=== PATIENT | male | born 1990 | race Caucasian/White ===

== ENCOUNTER 2020-07-07 17:57 | Observation (INO) ==
[2020-07-07 18:22] VITALS: BMI 31.5
--- NOTE | 2020-07-07 18:25 | ED.PDOC ---
General ED Provider: Dr. MEDINA SANDERSON MD Chief Complaint: Shortness of Air Stated Complaint: awoke with sudden shortness of breath, chest tightness Time Seen by Physician: 18:12 Mode of Arrival: Walk-In Information Source: Patient Exam Limitations: No limitations Nursing and Triage Documentation Reviewed and Agree: Yes Does patient meet sepsis criteria?: No System Inflammatory Response Syndrome: Not Applicable Sepsis Protocol: For patient's 13 years and over: Temp is 96.8 and below OR 101 and greater Pulse >90 BPM Resp >20/minute Acutely Altered Mental Status Are patient's symptoms suggestive of a new infection, such as: -Pneumonia -Skin, Soft Tissue -Endocarditis -UTI -Bone, Joint Infection -Implantable Device -Acute Abdominal Infection -Wound Infection -Meningitis -Blood Stream Catheter Infection -Unknown Review of Systems Review Of Systems Constitutional: Denies Chills and Fever All Other Systems: Reviewed and Negative [facility] Social History Smoking and tobacco status: Former smoker How long ago did patient quit smokin years Alcohol intake: never Substance use type: does not use Physical Exam Physical Exam Appearance: Reports Well-appearing Ill-appearing: None Pain Distress: None Eyes: Reports UNIQUE and EOMI ENT: Reports Ears normal and Nose normal Neck: Supple Respiratory: Reports Breath sounds equal and Rhonchi (localized, right posterior mid lung) Cardiovascular: Reports RRR, Pulses normal and No murmur GI/: Reports Soft and Nontender Musculoskeletal: Reports Normal strength and No calf tenderness Skin: Reports Warm and Dry Neurological: Reports Sensation intact, Motor intact and Reflexes intact Psychiatric: Reports Affect appropriate Interpretation Radiology Interpretation Radiology Interpretation By: Radiologist Exam Interpreted: CXR Xray Comments: cardiomegaly Critical Care Note Critical Care Note Total Critical Care Time (mins): 0 Course Course Hematology/Chemistry: 07/07/20 18:30 07/07/20 18:30 Orders, Labs, Meds: Lab Review 07/07/20 07/07/20 07/07/20 18:30 18:30 18:30 WBC 8.11 RBC 5.36 Hgb 14.1 Hct 41.5 L MCV 77.4 L MCH 26.3 L MCHC 34.0 RDW Coeff of Cecil 13.9 Plt Count 333 Immature Gran % (Auto) 0.1 Neut % (Auto) 69.5 Lymph % (Auto) 19.6 Person % (Auto) 9.2 Eos % (Auto) 1.4 Baso % (Auto) 0.2 Neut # (Auto) 5.6 Lymph # (Auto) 1.6 Person # (Auto) 0.8 Eos # (Auto) 0.1 Baso # (Auto) 0.0 Immature Gran # (Auto) 0.0 Sodium 138.8 Potassium 3.94 Chloride 105.7 Carbon Dioxide 25.9 Anion Gap 11.14 BUN 20.7 H Creatinine 1.04 Estimated GFR (MDRD) 83.00 BUN/Creatinine Ratio 19.90 Glucose 107.1 H Calcium 9.68 Total Bilirubin 0.48 AST 30.5 ALT 27.3 Alkaline Phosphatase 97.7 Total Protein 7.75 Albumin 4.26 Globulin 3.49 Albumin/Globulin Ratio 1.22 D-Dimer 1018.94 H Orders Category Date Time Status PLACE PATIENT OBSERVATION .TO MEDSURG (MONITORED BED ADMISSION 07/07/20 19:51 Ordered ) EKG-(ED ONLY) Stat CARDIO 07/07/20 18:18 Completed NPO REMINDER: IMAGING ONCE CARE 07/07/20 19:16 Completed TELEMETRY MONITORING TELE CARE 07/07/20 19:52 Ordered ED IV/MEDIPORT/POWERPORT .ONCE EMERGENCY 07/07/20 19:18 Active ABG Stat LAB 07/07/20 18:21 Ordered CBC W/ AUTO DIFF Stat LAB 07/07/20 18:30 Completed COMPREHENSIVE METABOLIC PANEL Stat LAB 07/07/20 18:30 Completed D-DIMER Stat LAB 07/07/20 18:30 Completed RESPIRATORY PANEL 2.1 (PCR) Stat LAB 07/07/20 Ordered 0.9 % Sodium Chloride [Saline Flush] MEDS 07/07/20 19:18 Active 1 syr IVF PRN PRN Enoxaparin Sodium [Lovenox] MEDS 07/07/20 19:49 Stat 100 mg SUBCUT ONCE STA Omeprazole [Prilosec] MEDS 07/07/20 19:50 Stat 40 mg PO ONCE STA CHEST, 1V AP ONLY Stat RADS 07/07/20 18:[address] CHEST PE PROTOCOL Stat RADS 07/07/20 19:16 Ordered Medications Generic Name Dose Route Start Last Admin Trade Name Freq PRN Reason Stop Dose Admin Sodium Chloride 1 syr 07/07/20 19:18 0.9% Sodium Chloride 10 Ml Disp.Syrin IVF PRN PRN To flush IV Discontinued Medications Generic Name Dose Route Start Last Admin Trade Name Freq PRN Reason Stop Dose Admin Enoxaparin Sodium 100 mg 07/07/20 19:49 Enoxaparin Sodium 100 Mg/Ml Syr SUBCUT 07/07/20 19:50 ONCE STA Omeprazole 40 mg 07/07/20 19:50 Omeprazole 20 Mg Capsule.Dr PO 07/07/20 19:51 ONCE STA D-Dimer elevated at 1018, will obtain CT chest, PE protocol Vital Signs: Temp Pulse Resp BP Pulse Ox 07/07/20 18:17 97.1 F L 68 18 140/87 98 Discharge Plan Discharge Patient Disposition: PLACED OBSERVATION Discharge Problem: Elevated d-dimer, Shortness of breath ED Provider: MEDINA SANDERSON Condition: Stable Physician Progress Note: patient has elevated D-Dimer, now states he has severe urticaria from IV contrast; have discussed with patient option for V/Q scan and venous doppler lower extremities, empiric Lovenox, and he agrees. As the patient has a positive Covid 19 family member from 2-3 weeks ago, he seems low risk; however, a rapid swab will be obtained to better assist with proper bed placement.
[2020-07-07 18:43] LABS: BASOPHILS % (AUTO) 0.2 % (0.0-3.0); EOSINOPHILS # (AUTO) 0.1 K/ul (0.0-0.7); EOSINOPHILS % (AUTO) 1.4 % (0.0-7.0); HEMATOCRIT 41.5 % (42.0-52.0); HEMOGLOBIN 14.1 g/dl (14.0-18.0); IMMATURE GRANULOCYTE % (AUTO) 0.1 % (0.0-5.0); LYMPHOCYTES # (AUTO) 1.6 K/uL (0.60-3.4); LYMPHOCYTES % (AUTO) 19.6 (10.0-50.0); MEAN CORPUSCULAR HEMOGLOBIN 26.3 pg (27.0-31.0); MEAN CORPUSCULAR VOLUME 77.4 fl (80.0-94.0); MONOCYTES # (AUTO) 0.8 K/uL (0.4-2.0); MONOCYTES % (AUTO) 9.2 (0-10); NEUTROPHILS # (AUTO) 5.6 K/ul (2.0-6.9); NEUTROPHILS % (AUTO) 69.5 % (42.2-75.2); PLATELET COUNT 333 10^3/uL (140-440); RDW COEFFICIENT OF VARIATION 13.9 % (11.6-14.8); RED BLOOD COUNT 5.36 10^6/ul (4.70-6.10); WHITE BLOOD COUNT 8.11 K/ul (4.2-10.2)
--- NOTE | 2020-07-07 18:47 | DI ---
EXAM: AP single view of the chest. HISTORY: Shortness of breath. FINDINGS: The bones are unremarkable. The cardiac silhouette is enlarged. The pulmonary vasculature is within normal limits. The costophrenic angles are clear. No infiltrate or consolidation. Impression: Cardiomegaly.
[2020-07-07 18:50] LABS: ALANINE AMINOTRANSFERASE 27.3 U/L (0-50); ALBUMIN 4.26 g/dL (3.5-5.0); ALKALINE PHOSPHATASE 97.7 U/L (38-126); ASPARTATE AMINO TRANSFERASE 30.5 U/L (17-59); BILIRUBIN,TOTAL 0.48 mg/dL (0.2-1.3); BLOOD UREA NITROGEN 20.7 mg/dL (9-20); CALCIUM 9.68 mg/dL (8.4-10.2); CARBON DIOXIDE 25.9 mmol/L (22-30.0); CHLORIDE 105.7 mmol/L (98-107); CREATININE 1.04 mg/dL (0.60-1.10); GLUCOSE 107.1 mg/dL (74-106); POTASSIUM 3.94 mmol/L (3.5-5.1); SODIUM 138.8 mmol/L (134.5-145); TOTAL PROTEIN 7.75 g/dL (6.3-8.2)
[2020-07-07] MEDS ORDERED: LOVENOX SUBCUT STA (19:49)
[2020-07-07] MEDS ORDERED: PRILOSEC PO STA (19:50)
--- NOTE | 2020-07-07 20:04 | PCM ---
Chief Complaint Chief Complaint: acute shortness of breath, elevated D-Dimer History of Present Illness History of Present Illness: 29 year old male, non smoker, daughter recently Covid positive, had negative Covid swab yesterday, today awoke with acute shortness of breath 1 hour [employer]; patient complains of pleuritic chest discomfort anteriorly; denies fever or chills. Review of Systems Constitutional: Reports No symptoms Eyes: Reports No symptoms Ears: Reports No symptoms Nose: Reports No symptoms Throat: Reports No symptoms Mouth: Reports No symptoms Respiratory: Reports Shortness of air and Pain with breathing Cardiovascular: Reports Palpitations Gastrointestinal: Reports Diarrhea and Other (cramps) Genitourinary: Reports No symptoms Neurological: Reports No symptoms Musculoskeletal: Reports No symptoms Skin: Reports No symptoms Immunology: Reports No symptoms Hematology: Reports No symptoms Allergies Allergies Allergy/AdvReac Type Severity Reaction Status Date / Time acetaminophen [From Tylenol] Allergy Hives Verified 07/07/20 18:23 Iodinated Contrast Media AdvReac Verified 07/07/20 19:53 [facility] Social History Smoking and tobacco status: Former smoker How long ago did patient quit smokin years Alcohol intake: never Substance use type: does not use Medications Medications: Medications Generic Name Dose Route Start Last Admin Trade Name Freq PRN Reason Stop Dose Admin Sodium Chloride 1 syr 07/07/20 19:18 0.9% Sodium Chloride 10 Ml Disp.Syrin IVF PRN PRN To flush IV Body Composition Height: 6 ft 1 in Weight: 108.4 kg Body Mass Index (BMI): 31.5 Vital Signs Temperature: 97.1 F Pulse Rate: 68 Respiratory Rate: 18 Blood Pressure: 140/87 O2 Sat by Pulse Oximetry: 98 Physical Examination Appearance: Reports No pain distress and Well-nourished Ill-appearing: Mild Eyes: Reports EOMI ENT: Reports Ears normal, Nose normal and Oropharynx normal Neck: Supple Respiratory: Reports Airway patent and Rhonchi (posterior, right, mid lung patel) Cardiovascular: Reports RRR and No rub GI/: Reports Soft and Nontender Musculoskeletal: Reports Normal strength and ROM intact Skin: Reports Warm and Dry Neurological: Reports Sensation intact, Motor intact, Reflexes intact, Cranial nerves intact and Alert Psychiatric: Reports Affect appropriate Lab/Tests/Diagnostic Imaging Lab/Tests/Diagnostic Imaging: Lab Review 07/07/20 07/07/20 07/07/20 18:30 18:30 18:30 WBC 8.11 RBC 5.36 Hgb 14.1 Hct 41.5 L MCV 77.4 L MCH 26.3 L MCHC 34.0 RDW Coeff of Cecil 13.9 Plt Count 333 Immature Gran % (Auto) 0.1 Neut % (Auto) 69.5 Lymph % (Auto) 19.6 [place] % (Auto) 9.2 Eos % (Auto) 1.4 Baso % (Auto) 0.2 Neut # (Auto) 5.6 Lymph # (Auto) 1.6 [place] # (Auto) 0.8 Eos # (Auto) 0.1 Baso # (Auto) 0.0 Immature Gran # (Auto) 0.0 Sodium 138.8 Potassium 3.94 Chloride 105.7 Carbon Dioxide 25.9 Anion Gap 11.14 BUN 20.7 H Creatinine 1.04 Estimated GFR (MDRD) 83.00 BUN/Creatinine Ratio 19.90 Glucose 107.1 H Calcium 9.68 Total Bilirubin 0.48 AST 30.5 ALT 27.3 Alkaline Phosphatase 97.7 Total Protein 7.75 Albumin 4.26 Globulin 3.49 Albumin/Globulin Ratio 1.22 D-Dimer 1018.94 H Orders Category Date Time Status PLACE PATIENT OBSERVATION .TO MEDSURG (MONITORED BED ADMISSION 07/07/20 19:51 Active ) EKG-(ED ONLY) Stat CARDIO 07/07/20 18:18 Completed NPO REMINDER: IMAGING ONCE CARE 07/07/20 19:16 Completed TELEMETRY MONITORING TELE CARE 07/07/20 19:52 Active ED IV/MEDIPORT/POWERPORT .ONCE EMERGENCY 07/07/20 19:18 Active ABG Stat LAB 07/07/20 18:21 Ordered CBC W/ AUTO DIFF Stat LAB 07/07/20 18:30 Completed COMPREHENSIVE METABOLIC PANEL Stat LAB 07/07/20 18:30 Completed D-DIMER Stat LAB 07/07/20 18:30 Completed RESPIRATORY PANEL 2.1 (PCR) Stat LAB 07/07/20 Ordered 0.9 % Sodium Chloride [Saline Flush] MEDS 07/07/20 19:18 Active 1 syr IVF PRN PRN Enoxaparin Sodium [Lovenox] MEDS 07/07/20 19:49 Discontinued 100 mg SUBCUT ONCE STA Omeprazole [Prilosec] MEDS 07/07/20 19:50 Discontinued 40 mg PO ONCE STA CHEST, 1V AP ONLY Stat RADS 07/07/20 18:[address] CHEST PE PROTOCOL Stat RADS 07/07/20 19:16 Ordered Medications Generic Name Dose Route Start Last Admin Trade Name Freq PRN Reason Stop Dose Admin Sodium Chloride 1 syr 07/07/20 19:18 0.9% Sodium Chloride 10 Ml Disp.Syrin IVF PRN PRN To flush IV Discontinued Medications Generic Name Dose Route Start Last Admin Trade Name Freq PRN Reason Stop Dose Admin Enoxaparin Sodium 100 mg 07/07/20 19:49 Enoxaparin Sodium 100 Mg/Ml Syr SUBCUT 07/07/20 19:50 ONCE STA Omeprazole 40 mg 07/07/20 19:50 Omeprazole 20 Mg Capsule.Dr PO 07/07/20 19:51 ONCE STA Assessment (1) Elevated d-dimer: Status: Acute Code(s): R79.89 - Other specified abnormal findings of blood chemistry SNOMED Code(s): 905357704 (2) Shortness of breath: Status: Acute Code(s): R06.02 - Shortness of breath SNOMED Code(s): 375844570 Plan Plan: will place patient in observation, order nuclear lung ventilation/perfusion scan for am, venous doppler lower extremities, and empirically administer Lovenox tonight.
--- NOTE | 2020-07-08 09:40 | US ---
EXAM: ULTRASOUND LOWER EXTREMITY VENOUS DOPPLER EXAM HISTORY: Elevated D-dimer. FINDINGS: Bilateral lower extremity venous Doppler exam. Real time hernandez-scale, Doppler spectral yisel lysis and color-flow Doppler imaging performed. The veins targeted for evaluation include the common femoral, greater saphenous, profundus, femoral, popliteal, peroneal, anterior tibial and posterior t ibial. The evaluated veins demonstrated normal spontaneous flow and compression without evidence o f thrombosis. IMPRESSION: No venous thrombosis identified within the areas evaluated.
[2020-07-08] MEDS ORDERED: TYLENOL PO PRN ×2 (10:56→10:57)
--- NOTE | 2020-07-08 11:08 | PCM ---
Chief Complaint Chief Complaint: Chest tightness and Shortness of breath History of Present Illness History of Present Illness: 29 y/o white male presented to ER yesterday evening around 1800 hrs stating he had awakened from sleep-a nap yesterday at 1700 hrs with sudden onset of dysp.kelly and lt sided chest tightness. [place]hey slightly nauseated, denied diaphoresis or vomiting. Pt evaluated in ER and d Dimer elevated. Allergic to contrast dye so it was necessary to admit, initiate therapy and schedule VQ Nuclear scan and Doppler Venous Scan this AM Review of Systems Constitutional: Denies No symptoms, Fever, Chills, Weakness, Sweats, Fatigue, Loss of appetite and Other Eyes: Denies No symptoms, Blurred vision, Double-vision, Discharge, Itching, Pain, Redness, Photophobia and Other Ears: Denies No symptoms, Pain, Bleeding, Drainage, Ringing, Hearing loss and Other Nose: Denies No symptoms, Bleeding, Congestion, Discharge and Other Throat: Denies No symptoms, Pain, Swelling, Voice change and Other Mouth: Denies No symptoms, Bleeding, Pain, Swelling and Other Respiratory: Reports Shortness of air; Denies No symptoms, Cough, Wheeze, Hemoptysis, Pain with breathing and Other Cardiovascular: Reports Left arm pain; Denies No symptoms, Diaphoresis, PND, Orthopnea, Edema, Palpitations, Syncope and Other Gastrointestinal: Denies No symptoms, Abdominal pain, Nausea, Vomiting, Diarrhea, Melena, Hematemesis, Hematochezia, Dysphagia, Constipation and Other Genitourinary: Denies No symptoms, dysuria, hematuria, frequency, incontinence, flank pain, penile discharge, testicular pain, testicular swelling and other Neurological: Denies No symptoms, Headache, Dizziness, Seizure, Numbness, Weakness, Speech difficulty, Problems with walking, Tremor, Fainting and Other Musculoskeletal: Denies No symptoms, Pain, Swelling in joints and Other Skin: Denies No symptoms, Rash, Pruritus, Lacerations, Wounds, Bruising and Other Immunology: Denies No symptoms, Hives, Itching, Frequent infections, Difficulty healing and Other Hematology: Denies No symptoms, Easy bruising, Easy bleeding, Swollen glands and Other Endocrine: Denies No symptoms, Weight changes, Cold intolerance, Heat intolerance, Excessive thirst, Excessive hunger, Polyuria and Other Psychiatric: Denies No symptoms, Depression, Anxiety, Sleeplessness, Hopelessness, Suicidal, Hallucinations and Other Habits: Denies Tobacco use, Substance use, Alcohol use and Other Allergies Allergies Allergy/AdvReac Type Severity Reaction Status Date / Time acetaminophen [From Tylenol] Allergy Hives Verified 07/07/20 18:23 Iodinated Contrast Media AdvReac Verified 07/07/20 19:53 PFSH Medical History (Updated 07/08/20 @ 11:07 by SUSAN BAUTISTA DO) Elevated d-dimer GERD (gastroesophageal reflux disease) Hypertension SVT (supraventricular tachycardia) Family History (Updated 07/08/20 @ 11:22 by SUSAN BAUTISTA DO) UNCLE Hypertension Other No known health problems Social History Smoking and tobacco status: Former smoker How long ago did patient quit smokin years Alcohol intake: never Substance use type: does not use Medications Medications: Medications Generic Name Dose Route Start Last Admin Trade Name Freq PRN Reason Stop Dose Admin Acetaminophen 650 mg 07/08/20 10:56 Acetaminophen 325 Mg Tablet PO Q4H PRN headache Sodium Chloride 1 syr 07/07/20 19:18 0.9% Sodium Chloride 10 Ml Disp.Syrin IVF PRN PRN To flush IV Sodium Chloride 1 syr 07/07/20 20:16 0.9% Sodium Chloride 10 Ml Disp.Syrin IVF PRN PRN To flush IV Body Composition Height: 6 ft 1 in Weight: 238 lb 15.697 oz Body Mass Index (BMI): 31.5 Vital Signs Temperature: 97.5 F Pulse Rate: 69 Respiratory Rate: 16 Blood Pressure: 113/72 O2 Sat by Pulse Oximetry: 97 Physical Examination Appearance: Reports Well-appearing, No pain distress and Well-nourished Ill-appearing: None Pain Distress: None Eyes: Reports UNIQUE, EOMI and Conjunctiva clear ENT: Reports Ears normal, Nose normal and Oropharynx normal Neck: Supple Respiratory: Reports Airway patent, Breath sounds clear and Breath sounds equal Cardiovascular: Reports RRR, Pulses normal, No rub and No murmur GI/: Reports Soft, Nontender, No masses, Bowel sounds normal and No Organomegaly Musculoskeletal: Reports Normal strength, ROM intact, No edema and No calf tenderness Skin: Reports Warm, Dry and Normal color Neurological: Reports Sensation intact, Motor intact, Reflexes intact, Cranial nerves intact, Alert and Oriented Psychiatric: Reports Affect appropriate and Mood appropriate Lab/Tests/Diagnostic Imaging Lab/Tests/Diagnostic Imaging: Lab Review 07/07/20 07/07/20 07/07/20 18:30 18:30 18:30 WBC 8.11 RBC 5.36 Hgb 14.1 Hct 41.5 L MCV 77.4 L MCH 26.3 L MCHC 34.0 RDW Coeff of Cecil 13.9 Plt Count 333 Immature Gran % (Auto) 0.1 Neut % (Auto) 69.5 Lymph % (Auto) 19.6 [place] % (Auto) 9.2 Eos % (Auto) 1.4 Baso % (Auto) 0.2 Neut # (Auto) 5.6 Lymph # (Auto) 1.6 [place] # (Auto) 0.8 Eos # (Auto) 0.1 Baso # (Auto) 0.0 Immature Gran # (Auto) 0.0 Sodium 138.8 Potassium 3.94 Chloride 105.7 Carbon Dioxide 25.9 Anion Gap 11.14 BUN 20.7 H Creatinine 1.04 Estimated GFR (MDRD) 83.00 BUN/Creatinine Ratio 19.90 Glucose 107.1 H Calcium 9.68 Total Bilirubin 0.48 AST 30.5 ALT 27.3 Alkaline Phosphatase 97.7 Total Protein 7.75 Albumin 4.26 Globulin 3.49 Albumin/Globulin Ratio 1.22 D-Dimer 1018.94 H Adenovirus (PCR) B. pertussis DNA (PCR) B.parapertussis DNA PCR C. pneumoniae DNA (PCR) Coronavirus OC43 (PCR) Coronavirus HKU1 (PCR) Coronavirus 229E (PCR) Coronavirus NL63 (PCR) Human Metapneumovir PCR Influenza Type A (PCR) Influenza B (RT-PCR) M. pneumoniae (PCR) Parainfluenza 1 (PCR) Parainfluenza 2 (PCR) Parainfluenza 3 (PCR) Parainfluenza 4 (PCR) RSV (PCR) Entero/Rhino (PCR) SARS-CoV-2 (PCR) 07/07/20 20:05 WBC RBC Hgb Hct MCV MCH MCHC RDW Coeff of Cecil Plt Count Immature Gran % (Auto) Neut % (Auto) Lymph % (Auto) [place] % (Auto) Eos % (Auto) Baso % (Auto) Neut # (Auto) Lymph # (Auto) [place] # (Auto) Eos # (Auto) Baso # (Auto) Immature Gran # (Auto) Sodium Potassium Chloride Carbon Dioxide Anion Gap BUN Creatinine Estimated GFR (MDRD) BUN/Creatinine Ratio Glucose Calcium Total Bilirubin AST ALT Alkaline Phosphatase Total Protein Albumin Globulin Albumin/Globulin Ratio D-Dimer Adenovirus (PCR) Not detected B. pertussis DNA (PCR) Not detected B.parapertussis DNA PCR Not detected C. pneumoniae DNA (PCR) Not detected Coronavirus OC43 (PCR) Not detected Coronavirus HKU1 (PCR) Not detected Coronavirus 229E (PCR) Not detected Coronavirus NL63 (PCR) Not detected Human Metapneumovir PCR Not detected Influenza Type A (PCR) Not detected Influenza B (RT-PCR) Not detected M. pneumoniae (PCR) Not detected Parainfluenza 1 (PCR) Not detected Parainfluenza 2 (PCR) Not detected Parainfluenza 3 (PCR) Not detected Parainfluenza 4 (PCR) Not detected RSV (PCR) Not detected Entero/Rhino (PCR) Not detected SARS-CoV-2 (PCR) Not detected Orders Category Date Time Status PLACE PATIENT OBSERVATION .TO MEDSURG (MONITORED BED ADMISSION 07/07/20 19:51 Active ) EKG-(ED ONLY) Stat CARDIO 07/07/20 18:18 Completed EKG-(IP & OP ONLY) Stat CARDIO 07/08/20 10:51 Ordered ACTIVITY .Up ad Karol CARE 07/07/20 20:12 Active INTAKE & OUTPUT Q8HR CARE 07/07/20 20:12 Active NOTIFY PHYSICIAN OF CONSULT ONCE CARE 07/08/20 10:53 Active NPO REMINDER: IMAGING ONCE CARE 07/07/20 19:16 Completed NPO REMINDER: LAB TEST ONCE CARE 07/08/20 10:55 Active TELEMETRY MONITORING TELE CARE 07/07/20 19:52 Active VITAL SIGNS Q4HR CARE 07/07/20 20:12 Active CONSULT PHYSICIAN [PHYSICIAN CONSULTATION] [CONS] Stat CONSULTS 07/08/20 10:53 Ordered REGULAR DIET DIETARY 07/07/20 Breakfast Ordered ED IV/MEDIPORT/POWERPORT .ONCE EMERGENCY 07/07/20 19:18 Active CBC W/ AUTO DIFF Stat LAB 07/07/20 18:30 Completed COMPREHENSIVE METABOLIC PANEL Stat LAB 07/07/20 18:30 Completed D-DIMER Stat LAB 07/07/20 18:30 Completed ESR Stat LAB 07/08/20 10:52 Ordered LIPID PANEL Stat LAB 07/08/20 10:54 Ordered RESPIRATORY PANEL 2.1 (PCR) Stat LAB 07/07/20 20:05 Completed TROPONIN I Stat LAB 07/08/20 10:52 Ordered 0.9 % Sodium Chloride [Saline Flush] MEDS 07/07/20 19:18 Active 1 syr IVF PRN PRN 0.9 % Sodium Chloride [Saline Flush] MEDS 07/07/20 20:16 Active 1 syr IVF PRN PRN Acetaminophen [Tylenol] MEDS 07/08/20 10:56 Ordered 650 mg PO Q4H PRN Enoxaparin Sodium [Lovenox] MEDS 07/07/20 19:49 Discontinued 100 mg SUBCUT ONCE STA Omeprazole [Prilosec] MEDS 07/07/20 19:50 Discontinued 40 mg PO ONCE STA RESUSCITATION STATUS Routine OTHERS 07/07/20 20:12 Ordered CHEST, 1V AP ONLY Stat RADS 07/07/20 18:[address] CHEST W/O CONTRAST Stat RADS 07/08/20 10:51 Ordered PULMONARY PERFUSION/ NUC MED Routine RADS 07/08/20 06:00 Taken U/S VENOUS SCAN KEVIN LEGS Routine RADS 07/08/20 06:00 Completed Medications Generic Name Dose Route Start Last Admin Trade Name Freq PRN Reason Stop Dose Admin Acetaminophen 650 mg 07/08/20 10:56 Acetaminophen 325 Mg Tablet PO Q4H PRN headache Sodium Chloride 1 syr 07/07/20 19:18 0.9% Sodium Chloride 10 Ml Disp.Syrin IVF PRN PRN To flush IV Sodium Chloride 1 syr 07/07/20 20:16 0.9% Sodium Chloride 10 Ml Disp.Syrin IVF PRN PRN To flush IV Discontinued Medications Generic Name Dose Route Start Last Admin Trade Name Freq PRN Reason Stop Dose Admin Enoxaparin Sodium 100 mg 07/07/20 19:49 07/07/20 20:08 Enoxaparin Sodium 100 Mg/Ml Syr SUBCUT 07/07/20 19:50 100 mg ONCE STA Administration Omeprazole 40 mg 07/07/20 19:50 07/07/20 20:09 Omeprazole 20 Mg Capsule.Dr BLAS 07/07/20 19:51 40 mg ONCE STA Administration Assessment (1) Elevated d-dimer: Status: Acute Code(s): R79.89 - Other specified abnormal findings of blood chemistry SNOMED Code(s): 406442917 (2) Shortness of breath: Status: Acute Code(s): R06.02 - Shortness of breath SNOMED Code(s): 306857723 (3) Chest tightness: Status: Acute Code(s): R07.89 - Other chest pain SNOMED Code(s): 23791923 (4) Dyspnea on exertion: Status: Acute Code(s): R06.00 - Dyspnea, unspecified SNOMED Code(s): 98810251 Plan Plan: Reveiewd testing with patient recommend additonal evaluation including Cardiology condult, Echo and stress test Patient agrees Previously seen small bilateral pulmonary nodules, largest in the left upper lobe measuring 5.6 mm are stable. There are three nodules on the right and the single nodule on the left. Lopez image(s) provided. Lungs are otherwise clear. Normal vascularity. No pleural fluid. The bones are within normal limits.
--- NOTE | 2020-07-08 11:20 | NM ---
EXAM: Perfusion lung scan HISTORY: Shortness of breath. Elevated D-dimer. COMPARISON: None of this type. Chest x-ray 07/07/2020. CTA 07/12/2019. PROCEDURE: Ventilation: This portion of the standard examination was not performed. Perfusion: The patient was injected with 5.3 mCi of 99 technetium MAA intravenously after which ante rior, posterior , lateral and anterior and posterior oblique images were obtained. FINDINGS: The examination demonstrates a generally uniform distribution of activity within the lung f ields. No specific segmental or subsegmental perfusion defects suggestive of pulmonary embolus are i dentified. IMPRESSION: No evidence of pulmonary embolus.
[2020-07-08] MEDS ORDERED: MOTRIN PO PRN (11:28)
--- NOTE | 2020-07-08 11:50 | CT ---
EXAM: CT THORAX HISTORY: Pulmonary nodules and lymph nodes, follow-up. TECHNIQUE: CT thorax without intravenous contrast. Multiplanar images presented. COMPARISON: 07/12/2019 FINDINGS: Normal heart size. No pericardial effusion. Thoracic aorta is within normal limits. Limited evalua tion of the mediastinum and hilar structures without the administration of intravenous contrast agent . Previously seen lymph node to the left of the pulmonary trunk is again noted and appears smaller i n size currently measuring 14 mm short axis. Previously seen small bilateral pulmonary nodules, largest in the left upper lobe measuring 5.6 mm ar e stable. There are three nodules on the right and the single nodule on the left. Lopez image(s) prov ided. Lungs are otherwise clear. Normal vascularity. No pleural fluid. The bones are within normal limits. IMPRESSION: 1. Stable small pulmonary nodules. 2. Prominent mediastinal lymph node is decreased in size since prior study.
[2020-07-08] MEDS ORDERED: PROTONIX PO STA (11:53)
[2020-07-08 12:10] LABS: CHOLESTEROL 145.7 mg/dL (0-200); HDL CHOLESTEROL 33.4 mg/dL (35-60); LDL CHOLESTEROL,CALCULATED 78 mmol/L; TRIGLYCERIDES 173.9 mg/dL (0-150); VLDL CHOLESTEROL 35 mg/dL (2-30)
[2020-07-08 12:46] LABS: TROPONIN I < 0.012 ng/ml (0.0000-0.120)
[2020-07-08 12:47] LABS: ERYTHROCYTE SEDIMENTATION RATE 7 mm/hr (0-15)
--- NOTE | 2020-07-08 14:39 | CONS ---
DATE OF CONSULTATION: 07/08/20 HISTORY OF PRESENT ILLNESS: 29-year-old white male hospitalized through the emergency room yesterday with chest pain. The patient was hospitalized under hospitalist services. Today Dr. Espitia called me and asked me for consultation for evaluation of chest pain. The patient is undergoing workup for elevated D. dimer. The patient is waiting for VQ scan to be done. The doppler for both lower extremities negative for DVT. Chest pain is localized to apical area going to the neck and to the left arm, duration two days. It started when he awoke from sleep, mainly nonexertional, comes and goes with steady tightness. He has never had this type of problems before. REVIEW OF SYSTEMS: CONSTITUTIONAL: No night sweats. No fatigue, malaise, lethargy. No fever or chills. HEENT: Eyes: No visual changes. No eye pain. No eye discharge. ENT: No sinus drainage. No epistaxis. No sinus pain. No sore throat. No odynophagia. No ear pain. No congestion. RESPIRATORY: No cough, no congestion. No hemoptysis. No shortness of breath. CARDIOVASCULAR: Chest pain, precordial of two days duration, steady and feeling to the jaw at times and on the left shoulder, no change with deep inspiration. GASTROINTESTINAL: Reflux disease, has to take medication all the time. No abdominal pain. No nausea or vomiting. No diarrhea or constipation. No hematemesis. No hematochezia. GENITOURINARY: No urgency. No frequency. No dysuria. No hematuria. No obstructive symptoms. No discharge. No pain. No significant abnormal bleeding. MUSCULOSKELETAL: No musculoskeletal pain. No joint swelling. NEUROLOGICAL: No headache. No neck pain. No syncope. No seizures. No dizziness. PSYCHIATRIC: Not anxious. No depression. No suicidal thoughts. No homicidal thoughts. SKIN: No rash. No lesions. No wounds. ENDOCRINE: No unexplained weight loss. No weight gain. HEMATOLOGIC/LYMPHATIC: No anemia. No purpura. No petechiae. No prolonged or excessive bleeding. No palpable lymph nodes. ALLERGIES: ACETAMINOPHEN AND IODINATED CONTRAST. PAST MEDICAL HISTORY: 1. History of hypertension for which he is on Metoprolol for the last several months, Dr. Raines in [place] started it. 2. The patient is on Omeprazole for reflux disease for a long time. SOCIAL/PERSONAL/FAMILY HISTORY: The patient lives with amauri who has three kids, is employed. Nonsmoker. No alcohol use. No drug abuse. The patient's uncles had coronary artery disease. PHYSICAL EXAMINATION: (Entire physical exam negative) GENERAL: The patient is oriented to time, place and person. VITAL SIGNS: Temperature 97.5, pulse 70, respiratory rate 16, BP 130/72, pulse ox 97% on room air. HEENT: Head normocephalic, atraumatic. Eyes: Extraocular muscles are intact. Pupils are equal, round and reactive to light and accommodation. Ears: No lesions. Nose appeared normal. Throat: No exudate or erythema. NECK: Supple. No JVD, no carotid bruit. No lymphadenopathy or thyromegaly. LUNGS: Clear to auscultation. Percussion note normal. Chest symmetrical. HEART: S1, S2, no S3. No murmurs. No cyanosis or clubbing. No ascites. Pulses: Dorsalis pedis and posterior tibial pulses +1 to +2 bilaterally. ABDOMEN: Soft. Nontender. Bowel sounds active. No CVA tenderness. No mass felt. EXTREMITIES: No edema. Full range of motion of all extremities, equal. NEUROLOGIC: No focal deficit. Cranial nerves II through XII are grossly intact. No headache, no double vision or headache. SKIN: Not dry. Intact. Turgor - normal. LYMPHATIC: No palpable lymph nodes/no lymphedema. MUSCULOSKELETAL: Normal joints with no swelling. Muscle tone is normal. LABS: Hemoglobin 14.1, WBC 8,000, normal differential. Creatinine 1, BUN 20, potassium 3.9. GFR 83 cc/min. Cardiac markers negative. EKG sinus rhythm. No changes times two. Telemetry sinus rhythm. No ST wave change. Echocardiogram was done this morning showing normal LV contractility, no wall motion abnormality noted. ASSESSMENT: 1. Chest pain with a history equivocal for coronary insufficiency. The patient has chest pain which is nonexertional with practically negative cardiac markers, EKGs and echocardiographic finding. 2. Hypertension. 3. Lipid profile pending. 4. BMI 31. 5. Family history of heart disease. RECOMMENDATIONS: 1. Echo was already done. 2. Will do stress echo in the morning. 3. Coronary artery disease and risk factors discussed with the patient. 4. Add Protonix 40 mg twice a day. 5. D/C Ibuprofen. 6. Continue telemetry. Thanks for referral, will follow. HIEU
[2020-07-08] MEDS: PROTONIX PO SCH (17:22)
[2020-07-09] MEDS ORDERED: ULTRAM PO PRN (00:55)
[2020-07-09] MEDS: PROTONIX PO SCH (05:59)
--- NOTE | 2020-07-09 08:11 | PCM.PROG ---
Objective: Vitals: T=97.8 F, P=74, R=18, FB=166/74, SPO2=98 HEENT: no scalp tenderness, swelling, or apparent injury Neck: normal ROM, non tender Lungs: clear CVS: 74, regular, without murmur or rub Abdomen: soft, non tender Extremities: non tender Neurological: up and about, without difficulty; Cranial nerves/M/S/DTR/Gait normal; negative Romberg (1) Elevated d-dimer: Status: Acute Code(s): R79.89 - Other specified abnormal findings of blood chemistry SNOMED Code(s): 184558687 (2) Shortness of breath: Status: Acute Code(s): R06.02 - Shortness of breath SNOMED Code(s): 168435261 (3) Chest tightness: Status: Acute Code(s): R07.89 - Other chest pain SNOMED Code(s): 28748885 (4) Dyspnea on exertion: Status: Acute Code(s): R06.00 - Dyspnea, unspecified SNOMED Code(s): 16776386 (5) Headache: Status: Acute Code(s): R51.9 - Headache, unspecified SNOMED Code(s): 73815373 (6) Minor traumatic injury of head with normal mental status: Status: Acute Code(s): S09.90XA - Unspecified injury of head, initial encounter SNOMED Code(s): 260194522
--- NOTE | 2020-07-09 08:16 | PCM.PROG ---
S: Patient states he has been up and about, that a few hours ago he felt woozy when walking, and bumped his right parietal area on the corner closet wall, described his pain as 10/10, unrelieved with tramadol. O: see previous note for vitals, physical assessments. Reviewed with nursing, no witness of the patient's stated injury to his head. A: Headache, minor head trauma without objective evidence of injury or neurological abnormality. P: Patient is awaiting stress echo today; will obtain CT scan head to exclude any serious injury, monitor neuro signs; anticipate release from observation today if OK with Dr. Cardoso after today's studies complete. Will consult case management.
--- NOTE | 2020-07-09 09:14 | CT ---
EXAM: CT Head HISTORY: Head injury, headache COMPARISON: 07/12/2019 TECHNIQUE: CT head performed without contrast FINDINGS: There is no mass effect, midline shift, or intracranial hemmorhage. Schmitz white differenti ation is preserved. There is no extra-axial collection. The ventricles and sulci are unremarkable. The basal cisterns are patent. There is no depressed calvarial fracture. The mastoid air cells are clear. The visualized paranasal sinuses are clear. IMPRESSION: No acute intracranial abnormality.
[2020-07-09 10:21] VITALS: BP 123/72; TEMP 98
[2020-07-09 12:25] LABS: AMPHETAMINE SCREEN,URINE NEGATIVE (NEGATIVE); BARBITURATE SCREEN,URINE NEGATIVE (NEGATIVE); BENZODIAZEPINES SCREEN,URINE NEGATIVE (NEGATIVE); CANNABINOID SCREEN,URINE NEGATIVE (NEGATIVE); COCAIN SCREEN,URINE NEGATIVE (NEGATIVE); METHADONE URINE SCREEN NEGATIVE (NEGATIVE); METHAMPHETAMINES SCREEN,URINE NEGATIVE (NEGATIVE); OPIATE SCREEN,URINE NEGATIVE (NEGATIVE); OXYCODONE URINE SCREEN NEGATIVE (NEGATIVE); PHENCYCLIDINE SCREEN,URINE NEGATIVE (NEGATIVE); PROPOXYPHENE URINE SCREEN NEGATIVE (NEGATIVE); TRICYCLIC ANTIDEPRESSANTS URIN NEGATIVE (NEGATIVE)
--- NOTE | 2020-07-09 13:59 | PCM.PROG ---
History of Present Illness: Admitted 07/07/20 21:49, this 29 year old /WHITE/M [] Physical Examination: Vitals: Temperature 98 F, Pulse 65, Respirations 16, Blood Pressure 123/72, SPO2 97 Body Measurements: Height 6 ft 1 in, Weight 108.4 kg, BMI 31.5-Obese HEENT NEGATIVE RESP CLEAR CV-NORMAL MS-NORMAL NEURO-M/S/DTR/CrN/GAIT NORMAL Allergies Allergy/AdvReac Type Severity Reaction Status Date / Time acetaminophen [From Tylenol] Allergy Hives Verified 07/07/20 18:23 Iodinated Contrast Media AdvReac Verified 07/07/20 19:53 Medications: Medications Generic Name Dose Route Start Last Admin Trade Name Freq PRN Reason Stop Dose Admin Pantoprazole Sodium 40 mg 07/08/20 17:00 07/09/20 05:59 Pantoprazole Sodium 40 Mg Tablet.Dr PO 40 mg BIDAC SORAIDA Administration Sodium Chloride 1 syr 07/07/20 20:16 0.9% Sodium Chloride 10 Ml Disp.Syrin IVF PRN PRN To flush IV Sodium Chloride 1 syr 07/08/20 21:00 07/09/20 05:59 0.9% Sodium Chloride 10 Ml Disp.Syrin IVF 1 syr Q8HR SORAIDA Administration Tramadol HCl 50 mg 07/09/20 00:55 07/09/20 01:21 Tramadol Hcl 50 Mg Tablet PO 50 mg TID PRN Administration Severe pain or headache ASSESSMENT: Please see below. ECHO AND STRESS ECHO NEGATIVE; CT BRAIN NEGATIVE, CHEST XRAY NORMAL. INITIAL D DIMER ELEVATED 1018. SERIAL TROPONINS NORMAL; URINE TOX NEGATIVE. (1) Elevated d-dimer: Status: Acute Code(s): R79.89 - Other specified abnormal findings of blood chemistry SNOMED Code(s): 430070512 (2) Shortness of breath: Status: Acute Code(s): R06.02 - Shortness of breath SNOMED Code(s): 396459987 (3) Chest tightness: Status: Acute Code(s): R07.89 - Other chest pain SNOMED Code(s): 98900631 (4) Dyspnea on exertion: Status: Acute Code(s): R06.00 - Dyspnea, unspecified SNOMED Code(s): 87171184 (5) Headache: Status: Acute Code(s): R51.9 - Headache, unspecified SNOMED Code(s): 45101163 (6) Minor traumatic injury of head with normal mental status: Status: Acute Code(s): S09.90XA - Unspecified injury of head, initial encounter SNOMED Code(s): 167410748 [facility] Medical History (Updated 07/09/20 @ 08:09 by MEDINA SANDERSON MD) Elevated d-dimer GERD (gastroesophageal reflux disease) Hypertension SVT (supraventricular tachycardia) Family History (Updated 07/08/20 @ 11:22 by SUSAN BAUTISTA DO) UNCLE Hypertension Other No known health problems Social History Smoking and tobacco status: Former smoker How long ago did patient quit smokin years Alcohol intake: never Substance use type: does not use
--- NOTE | 2020-07-09 14:05 | PCM.HOSP ---
Observation Care Discharge [id number] OBS Care Discharge (21643): PATIENT SYMPTOMATICALLY IMPROVED, NO FURTHER CHEST PAIN, STRESS ECHO REVIEWED WITH DR SANDERS, NEGATIVE. Initial Observation Care [id number] Moderate Complexity 50 Minutes (51270): TELEMETRY MONITORING, NUCLEAR LUNG SCAN, VENOUS DOPPLER LOWER EXTREMITY Subsequent Observation Care [id number] 25 Minutes per Day (82747): SERIAL TROPONINS MONITORED, HEAD CT REVIEWED; NEURO STATUS EVALUATED WITH SERIAL MONITORING Hospital Discharge 1052381 30 Minutes or Less (23640): DISCHARGE HOME WITH PRESCRIPTIONS FOR ROSUVASTATIN, CONTINUE METOPROLOL AND PROTONIX Additional Information Additional Information: ACTIVITY AND WORK NORMAL
--- NOTE | 2020-07-10 09:12 | STRESSECHO ---
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 Reason for Exam: SOB, CHEST TIGHTNESS, HTN Smoking History: QUIT 8 YR AGO Height: 73" Weight: 238 LBS Target Heart Rate: 160/189 Current Medications: MOTRIN, OMEPRAZOLE, METOPROLOL Resting EKG: SINUS RHYTHM/ NO ACUTE CHANGES S-T SEGMENT STAGE MPH/GRADE HEART RATE BPM BLOOD PRESSURE MMHG RHYTHM +/- ELEVATION DEPRESSION SYMPTOMS AT REST 76 BPM 120/88 MM[facility] SR X NONE 1 1.7/10% 133 BPM 128/76 MM[facility] SR X NONE 2 2.5/12% 3 3.4/14% 4 4.2/16% 5 5.0/18% Immediately After 150 BPM SR X SHORT OF AIR Minutes Post Exercise 5:00 88 BPM 118/82 MMHG SR X NONE Minutes Post Exercise DURATION OF EXERCISE: 4:46 MAXIMUM HEART RATE REACHED: 150 BPM REASON FOR TERMINATION: SHORT OF AIR 99% OXYGEN SATURATION WITH EXERCISE ON ROOM AIR INTERPRETATION: 1. NO EVIDENCE OF ISCHEMIC ST-T WAVE CHANGES FROM RESTING HEART RATE 76 BPM TO 150 BPM POST EXERCISE 2. NO CHEST PAIN OR DISCOMFORT 3. NO ARRHYTHMIAS 4. BLOOD PRESSURE: NORMAL NORMAL LEFT VENTRICULAR CONTRACTILITY--RESTING AND POST EXERCISE MTDD
--- NOTE | 2020-07-10 09:15 | ECHOSTRESS ---
Date of Exam: 07/09/2020 Ordering Physician: HOSPITALIST--[facility] Reason for Echo: SOB, CHEST TIGHTNESS, STRESS TEST --NO ISCHEMIA M-Mode Normal Adult Results LV Dimensions Normal Adult Results AoV Opening excursions >1.6 LVEDD-base- 3.5-5.8 Ao root dimensions 2.0-3.7 LVESD-base- 3.1-4.6 L. Atrium dimensions 1.9-3.8 Post. Wall thickness 0.8-1.1 IV septum (thickness) 0.7-1.2 Post. Wall excursion 0.72-1.3 Septal motion Systolic motion R. Ventricular cavity 1.5-2.0 LVEF 60% Paradoxical septal wall motion 2-D: NORMAL LEFT VENTRICULAR CONTRACTILITY--RESTING AND POST EXERCISE M-MODE: MV: AV: TV: PV: CHAMBER SIZE: WALL MOTION: NORMAL LEFT VENTRICULAR CONTRACTILITY--RESTING AND POST EXERCISE PERICARDIUM: INTERPRETATION: 1.NORMAL LEFT VENTRICULAR CONTRACTILITY--RESTING AND POST EXERCISE MTDD
--- NOTE | 2020-07-10 09:19 | ECHO2D ---
Date of Exam: 07/08/2020 Ordering Physician: HOSPITALIST/ [facility] Room #: [id number] Reason for Echo: SOB, CHEST TIGHTNESS M-Mode Normal Adult Results LV Dimensions Normal Adult Results AoV Opening excursions >1.6 >1.6 LVEDD-base- 3.5-5.8 5.2 Ao root dimensions 2.0-3.7 3.7 LVESD-base- 3.1-4.6 L. Atrium dimensions 1.9-3.8 3.5 Post. Wall thickness 0.8-1.1 1.2 IV septum (thickness) 0.7-1.2 1.2 Post. Wall excursion 0.72-1.3 NORMAL Septal motion NORMAL Systolic motion R. Ventricular cavity 1.5-2.0 NORMAL LVEF 60% 69% Paradoxical septal wall motion NORMAL 2-D : 2-D M Mode Echocardiogram was performed using apical four chamber and left parasternal long and short axis views. Mitral, tricuspid and aortic valves appear to be normal. Contractility of the left ventricle seems to be normal, so is the cavity size. Left atrial cavity size and aortic root appear to be normal. There is no pericardial effusion. There is no thrombus noted in the left ventricle or left atrial cavity. No mitral valve prolapse noted. M-MODE: MV: NORMAL AV: NORMAL TV: NORMAL PV: CHAMBER SIZE: NORMAL WALL MOTION: NORMAL PERICARDIUM: NORMAL INTERPRETATION: 1. LEFT VENTRICULAR HYPERTROPHY--BORDERLINE 2. NORMAL VALVES 3. NORMAL LEFT VENTRICULAR CONTRACTILITY MTDD
--- NOTE | 2020-07-10 10:38 | CONS ---
DATE OF SERVICE: 06/09/2020 CONSULT FOLLOWUP SUBJECTIVE: 29 year old white male seen on consultation for evaluation of chest pain. The patient has been ruled out to have a pulmonary embolism. Negative ultrasound of both lower extremity and VQ scan. REVIEW OF SYSTEMS: CONSTITUTIONAL: No night sweats. No fatigue, malaise, lethargy. No fever or chills. HEENT: Eyes: No visual changes. No eye pain. No eye discharge. ENT: No runny nose. No epistaxis. No sinus pain. No sore throat. No odynophagia. No ear pain. No congestion. RESPIRATORY: No cough, no congestion. No hemoptysis. CARDIOVASCULAR: No angina symptoms. No CHF symptoms. Some chest pain, noncardiac localized, precordial area. No radiation to any other part of the body. Pain is more or less constant for last 8 hours he has been in the hospital. No palpitations. No shortness of breath. GASTROINTESTINAL: No abdominal pain. No nausea or vomiting. No diarrhea or constipation. No hematemesis. No hematochezia. GENITOURINARY: No urgency. No frequency. No dysuria. No hematuria. No obstructive symptoms. No discharge. No pain. No significant abnormal bleeding. MUSCULOSKELETAL: No musculoskeletal pain. No joint swelling. No arthritis. NEUROLOGICAL: No headache. No neck pain. No syncope. No seizures. No dizziness. PSYCHIATRIC: Not anxious. No depression. No suicidal thoughts. No homicidal thoughts. SKIN: No rash. No lesions. No wounds. ENDOCRINE: No unexplained weight loss. No weight gain. HEMATOLOGIC/LYMPHATIC: No anemia. No purpura. No petechiae. No prolonged or excessive bleeding. No palpable lymph nodes. PHYSICAL EXAMINATION: GENERAL: The patient is oriented to time, place and person. VITAL SIGNS: Temperature 97.8, pulse 74, respiratory rate 18, blood pressure 110/74 and pulse ox 98% on room air. HEENT: Head normocephalic, atraumatic. Eyes: Extraocular muscles are intact. Pupils are equal, round and reactive to light and accommodation. Ears: No lesions. Nose appeared normal. Throat: No exudate or erythema. NECK: Supple. No JVD, no carotid bruit. No lymphadenopathy or thyromegaly. LUNGS: Decreased breath sounds but clear to auscultation. Percussion note normal. Chest symmetrical. HEART: S1, S2, no S3. No murmur. pericardial rub. No cyanosis or clubbing. No ascites. Pulses: Dorsalis pedis and posterior tibial pulses +1 to +2 bilaterally. ABDOMEN: Soft. Nontender. Bowel sounds active. No CVA tenderness. No mass felt. EXTREMITIES: No edema. Full range of motion of all extremities, equal. NEUROLOGIC: No focal deficit. Cranial nerves II through XII are grossly intact. No headache, no double vision or headache. SKIN: Not dry. Intact. Turgor - normal. LYMPHATIC: No palpable lymph nodes/no lymphedema. MUSCULOSKELETAL: Normal joints with no swelling. Muscle tone is normal. LABS: EKG sinus rhythm. No acute changes. Telemetry is sinus rhythm. No ST-T wave change. Cardiac markers are negative. The patient underwent stress echo the patient exercise on regular boost protocol 4.5 minutes reached the heart rate of 150. The patient's rate was 75 per minute. The patient had no ST -T wave change. No chest pain. Oxygen saturation stayed 99% with exercise. LV contractility was normal at rest and post exercise. ASSESSMENT: 1. Chest pain seems to be noncardiac. 2. Thyroid Profile normal 3. Liver profile normal, Risk factor is family history 4. Hypertension 5. Borderline LVH an echographic finding. RECOMMENDATIONS: 1. Continue Metoprolol 2. Continue followup with primary care 3. Continue PPI with history of reflux disease which could be partly responsible for the patient's chest pain. Case discussed with Dr. Lincoln. Thanks for referral. [facility] CENTERMartin
--- NOTE | 2020-07-10 10:38 | PN ---
07/08/2020: Level 5 07/09/2020: Intermediate MTDD
== END 2020-07-09 15:25 | disposition home or self-care (01) ==
LOC: ED 17:57 → MEDSURG A 17:57
PROVIDERS: ADMIT Emergency Medicine; ATTEND Emergency Medicine
DX: R07.89 Other chest pain; R06.02 Shortness of breath; S09.90XA Unspecified injury of head, initial encounter; R06.00 Dyspnea, unspecified; R51.9 Headache, unspecified; Z20.828 Contact with and (suspected) exposure to other viral communicable diseases